=== PATIENT | female | born 1975 ===

== ENCOUNTER → 2017-05-06 | Emergency (ER) | payer OTHER ==
[~2017-05-06] VITALS: Ht 157.5 cm; Wt 112.0 kg
[~2017-05-06] MED LIST: ALLOPURINOL300 MG; CEFTIN500 MG PO; PYRIDIUM100 M1 PO; SYNTHROID112 MCG; TAMS0.4C PO; Ultracet Tablet PO
== END | disposition home or self-care (01) ==
LOC: ER 19:30
DX: M54.41 Lumbago with sciatica, right side (principal)

== ENCOUNTER 2019-03-12 18:27 | Outpatient (CLI) | payer OTHER | END 2019-03-12 18:47 | disposition home or self-care (01) | LOC: LAB 18:27 | DX: N20.0 Calculus of kidney (principal); N20.1 Calculus of ureter ==

== ENCOUNTER 2019-03-13 11:13 | Outpatient (CLI) | payer OTHER | END 2019-03-13 11:15 | disposition home or self-care (01) | LOC: SONOGRAMA 11:13 | DX: N20.1 Calculus of ureter (principal); N20.0 Calculus of kidney ==

== ENCOUNTER 2019-04-17 12:50 | Emergency (ER) | payer OTHER ==
[~2019-04-17] VITALS: Ht 160 cm; Wt 124.3 kg
== END 2019-04-17 19:50 | disposition home or self-care (01) ==
LOC: ER 12:50
DX: N39.0 Urinary tract infection, site not specified (principal); N20.1 Calculus of ureter; K80.80 Other cholelithiasis without obstruction; K76.0 Fatty (change of) liver, not elsewhere classified

== ENCOUNTER 2019-04-25 19:07 | Outpatient (CLI) | payer OTHER | END 2019-04-25 19:23 | disposition home or self-care (01) | LOC: LAB 19:07 | DX: N30.00 Acute cystitis without hematuria (principal) ==

== ENCOUNTER 2019-05-02 05:50 | Day surgery (SDC) | payer OTHER | END 2019-05-02 13:25 | disposition home or self-care (01) | LOC: CIR.AMB 05:50 → O/R 12:15 → EDSTATUS 12:15 → CIR.AMB 13:25 | DX: N20.1 Calculus of ureter (principal) ==

== ENCOUNTER 2021-05-17 14:37 | Inpatient (IN) | payer OTHER ==
[~2021-05-17] VITALS: Ht 157.5 cm; Wt 117.9 kg
[2021-05-17] MEDS ORDERED: HIPREX1 GM (14:58)
== END 2021-05-20 22:30 | disposition home or self-care (01) | DRG 660 ==
LOC: ER 14:37 → SEC-K 20:09 → MEDJ 20:09 → SURH 05-20 18:52 → MEDJ 05-20 19:56
PROVIDERS: ADMIT Urology; ATTEND Urology
PROC: BW21ZZZ Computerized Tomography (CT Scan) of Abdomen and Pelvis (ICD-10-PCS; 2021-05-17)
PROC: 0T9480Z Drainage of Left Kidney Pelvis with Drainage Device, Via Natural or Artificial Opening Endoscopic (ICD-10-PCS; principal; 2021-05-20 16:00)
DX: N21.1 Calculus in urethra (principal); N39.0 Urinary tract infection, site not specified; Z68.41 Body mass index [BMI] 40.0-44.9, adult; N23 Unspecified renal colic; E66.01 Morbid (severe) obesity due to excess calories; D72.828 Other elevated white blood cell count; B96.4 Proteus (mirabilis) (morganii) as the cause of diseases classified elsewhere

== ENCOUNTER 2021-05-23 15:08 | Outpatient (CLI) | payer OTHER ==
[~2021-05-23 15:08] MED LIST changes: +HIPREX1 GM
== END 2021-05-23 15:19 | disposition home or self-care (01) ==
LOC: RAD 15:08
PROVIDERS: ATTEND Urology
DX: N20.1 Calculus of ureter (principal)

== ENCOUNTER 2021-05-24 13:15 | Outpatient (CLI) | payer OTHER | END 2021-05-24 13:29 | disposition home or self-care (01) | LOC: TOM 13:15 | PROVIDERS: ATTEND Urology | DX: N20.1 Calculus of ureter (principal) ==

== ENCOUNTER 2022-02-21 09:50 | Emergency (ER) | payer OTHER ==
[~2022-02-21] VITALS: Ht 157.5 cm; Wt 124.7 kg
== END 2022-02-21 16:57 | disposition left against medical advice (07) ==
LOC: ER 09:50
DX: J40 Bronchitis, not specified as acute or chronic (principal); S50.02XA Contusion of left elbow, initial encounter; W19.XXXA Unspecified fall, initial encounter; Y93.9 Activity, unspecified; Y92.9 Unspecified place or not applicable; S50.01XA Contusion of right elbow, initial encounter; E03.9 Hypothyroidism, unspecified; Z98.84 Bariatric surgery status; Z88.8 Allergy status to other drugs, medicaments and biological substances

== ENCOUNTER 2022-07-12 11:16 | Emergency (ER) | payer OTHER ==
[~2022-07-12] VITALS: Ht 157.5 cm; Wt 120.2 kg
== END 2022-07-12 18:08 | disposition home or self-care (01) ==
LOC: ER 11:16
DX: L03.115 Cellulitis of right lower limb (principal); E03.9 Hypothyroidism, unspecified; Z88.8 Allergy status to other drugs, medicaments and biological substances